=== PATIENT | male | born 1975 ===

== ENCOUNTER 2017-11-17 23:52 | Emergency (ER) | payer OTHER ==
[2017-11-18 00:06] VITALS: BMI 30.4
[2017-11-18 00:25] VITALS: RESP 18; TEMP 98.2
--- NOTE | 2017-11-18 00:45 | ED PDOC ---
Arrival/HPI - General Chief Complaint: High Blood Pressure Time Seen by Provider: 11/18/17 00:07 Historian: Patient - History of Present Illness Narrative History of Present Illness (Text): 11/18/17 00:45 A 42 year old male presents to the emergency department complaining of chest pressure and elevated blood pressure for the past month. Patient also reports his body hurts. Patient denies any other complaints at this time. Time/Duration: Other (month) Symptom Onset: Sudden Symptom Course: Unchanged Activities at Onset: Rest Context: Home Past Medical History - Provider Review Nursing Documentation Reviewed: Yes - Cardiac Hx Hypertension: No - Psychiatric Hx Substance Use: No Family/Social History - Physician Review Nursing Documentation Reviewed: Yes Family/Social History: No Known Family HX Smoking Status: n Hx Alcohol Use: No Hx Substance Use: No Allergies/Home Meds Allergies/Adverse Reactions: Allergies No Known Allergies Allergy (Verified 11/18/17 00:06) Home Medications: Home Meds Medication Instructions Recorded Confirmed Losartan [Cozaar] 50 mg PO DAILY 11/18/17 11/18/17 hydroCHLOROthiazide [Microzide] 12.5 mg PO DAILY 11/18/17 11/18/17 traZODone [trazODONE HYDROCHLORIDE] 50 mg PO DAILY 11/18/17 11/18/17 Review of Systems - Physician Review All systems were reviewed & negative as marked: Yes - Review of Systems Constitutional: Other (body pain; high blood pressure) Cardiovascular: Other (chest pressure) Physical Exam Vital Signs Reviewed: Yes Vital Signs Temp Pulse Resp BP Pulse Ox 11/18/17 03:45 72 18 141/79 97 11/18/17 02:33 146/87 11/18/17 01:45 74 18 146/78 97 11/18/17 01:14 90 151/98 H 11/18/17 00:22 98.2 F 73 18 162/86 H 99 Temperature: Afebrile Blood Pressure: Hypertensive Pulse: Regular Respiratory Rate: Normal Appearance: Positive for: Well-Appearing, Non-Toxic, Comfortable Pain Distress: None Mental Status: Positive for: Alert and Oriented X 3 - Systems Exam Head: Present: Atraumatic, Normocephalic Pupils: Present: PERRL Extroacular Muscles: Present: EOMI Conjunctiva: Present: Normal Mouth: Present: Moist Mucous Membranes Neck: Present: Normal Range of Motion Respiratory/Chest: Present: Clear to Auscultation, Good Air Exchange. No: Respiratory Distress, Accessory Muscle Use Cardiovascular: Present: Regular Rate and Rhythm, Normal S1, S2. No: Murmurs Abdomen: Present: Normal Bowel Sounds. No: Tenderness, Distention, Peritoneal Signs Back: Present: Normal Inspection Upper Extremity: Present: Normal Inspection. No: Cyanosis, Edema Lower Extremity: Present: Normal Inspection. No: Edema Neurological: Present: GCS=15, CN II-XII Intact, Speech Normal Skin: Present: Warm, Dry, Normal Color. No: Rashes Psychiatric: Present: Alert, Oriented x 3, Normal Insight, Normal Concentration Medical Decision Making ED Course and Treatment: 11/18/17 00:43 Impression: A 42 year old male with high blood pressure and chest pressure. Plan: -- EKG -- labs -- Urinalysis -- Reassess and disposition Progress Notes: 11/18/17 02:47 EKG: Ordered, reviewed, and independently interpreted the EKG. Rate : 55 BPM Rhythm : sinus tachycardia Interpretation : Nonspecific ST segment changes pt feels better with bp control will dc 11/22/17 09:28 - Lab Interpretations Lab Results: 11/18/17 00:55 11/18/17 00:55 Lab Results 11/18/17 00:55: Sodium 134, Potassium 3.3 L, Chloride 95 L, Carbon Dioxide 27, Anion Gap 15, BUN 15, Creatinine 1.0, Est GFR ( Amer) > 60, Est GFR (Non- Af Amer) > 60, Random Glucose 128 H, Calcium 8.9, Magnesium 1.8, Total Bilirubin 0.7, AST 27, ALT 36, Alkaline Phosphatase 68, Lactate Dehydrogenase 517, Total Creatine Kinase 157, Troponin I < 0.01, Total Protein 7.1, Albumin 4.4, Globulin 2.7, Albumin/Globulin Ratio 1.6 11/18/17 00:55: WBC 8.2, RBC 4.40, Hgb 14.0, Hct 39.0 L, MCV 88.6, MCH 31.8, MCHC 35.9, RDW 12.4, Plt Count 201, MPV 9.8, Gran % 70.7 H, Lymph % (Auto) 21.1 L, [place] % (Auto) 6.1 H, Eos % (Auto) 1.9, Baso % (Auto) 0.2, Gran # 5.80, Lymph # 1.7, [place] # 0.5, Eos # 0.2, Baso # 0.02 I have reviewed the lab results: Yes - EKG Interpretation Interpreted by ED Physician: Yes Type: 12 lead EKG - Medication Orders Current Medication Orders: Discontinued Medications Enalaprilat (Vasotec Iv) 1.25 mg IVP ONCE ONE Stop: 11/18/17 02:06 Last Admin: 11/18/17 02:33 Dose: Not Given Non-Admin Reason: BP Parameters Not Met [facility] Blood Pressure Document 11/18/17 02:33 SS (Rec: 11/18/17 02:33 SS [id number]) Blood Pressure Blood Pressure (100/60-150/90) 146/87 Hydralazine HCl (Apresoline) 10 mg IVP STAT STA Stop: 11/18/17 00:44 Last Admin: 11/18/17 01:14 Dose: 10 mg IVP Administration Document 11/18/17 01:14 MIRTA (Rec: 11/18/17 01:16 MIRTA [id number]) Charges for Administration # of IVP Administrations 1 [facility] Pulse and Blood Pressure Document 11/18/17 01:14 MIRTA (Rec: 11/18/17 01:16 MIRTA [id number]) Pulse Pulse Rate (60-90) 90 Blood Pressure Blood Pressure (100/60-150/90) 151/98 Potassium Chloride (K-Dur 20 Meq Er Tab) 20 meq PO ONCE ONE Stop: 11/18/17 01:21 Last Admin: 11/18/17 02:05 Dose: 20 meq JOHAN Risk Score for UA/NSTEMI - JOHAN Risk Score Age > 64: NO 3 or more CAD Risk Factors: NO Known CAD (Stenosis greater than 50%): NO Aspirin use in past 7 days: NO Severe Angina: NO EKG ST changes greater than 0.5mm: NO Positive Cardiac Marker: NO JOHAN Score: 0 % risk at 14 days of: all cause mortality, new or recurrent AK, or severe recurrent ischemia requiring urgen revascularization: 5% - Scribe Statement The provider has reviewed the documentation as recorded by the Moses Macario Provider Scribe Attestation: All medical record entries made by the Changibromario were at my direction and personally dictated by me. I have reviewed the chart and agree that the record accurately reflects my personal performance of the history, physical exam, medical decision making, and the department course for this patient. I have also personally directed, reviewed, and agree with the discharge instructions and disposition. Disposition/Present on Arrival - Present on Arrival Any Indicators Present on Arrival: No History of DVT/PE: No History of Uncontrolled Diabetes: No Urinary Catheter: No History of Decub. Ulcer: No History Surgical Site Infection Following: None - Disposition Have Diagnosis and Disposition been Completed?: Yes Diagnosis: Hypertension Disposition: HOME/ ROUTINE Disposition Time: 03:30 Condition: IMPROVED Discharge Instructions (ExitCare): Hypertension (DC) Print Language: DANISH Forms: [employer] ([place])
[2017-11-18 01:19] LABS: ALB/GLOB RATIO 1.6 (1.1-1.8); ALKALINE PHOSPHATASE 68 U/L (38-126); ALT/SGPT 36 U/L (7-56); AST/SGOT 27 U/L (17-59); BILIRUBIN,TOTAL 0.7 mg/dL (0.2-1.3); BLOOD UREA NITROGEN 15 mg/dL (7-21); CALCIUM 8.9 mg/dL (8.4-10.5); CARBON DIOXIDE 27 mmol/L (21-33); CHLORIDE 95 mmol/L (98-107); GFR AFRICAN-AMERICAN > 60; GLUCOSE,RANDOM 128 mg/dL (70-110); MAGNESIUM 1.8 mg/dL (1.7-2.2); POTASSIUM 3.3 mmol/L (3.6-5.0); SODIUM 134 mmol/L (132-148); TOTAL PROTEIN 7.1 g/dL (5.8-8.3)
[2017-11-18] MEDS ORDERED: Potassium Chloride 20 mEq ER Tab PO ONE (01:20)
[2017-11-18 01:30] LABS: BASO # 0.02 K/mm3 (0.0-2.0); BASO % 0.2 % (0.0-3.0); EOS # 0.2 (0.0-0.7); EOS % 1.9 % (1.5-5.0); GRAN # 5.8 (1.4-6.5); GRAN % 70.7 % (50.0-68.0); LYMPH # 1.7 (1.2-3.4); LYMPH % 21.1 % (22.0-35.0); MEAN CELL VOLUME 88.6 fl (80.0-105.0); MEAN CORPUSCULAR HEMOGLOBIN 31.8 pg (25.0-35.0); MEAN CORPUSCULAR HGB CONC 35.9 g/dl (31.0-37.0); MEAN PLATELET VOLUME 9.8 fl (7.0-11.0); MONO # 0.5 (0.1-0.6); MONO % 6.1 % (1.0-6.0); RED CELL DISTRIBUTION WIDTH 12.4 % (11.5-14.5); WHITE BLOOD COUNT 8.2 10^3/ul (4.5-11.0)
[2017-11-18 01:31] LABS: TROPONIN I < 0.01 ng/mL
[2017-11-18] MEDS ORDERED: EnalaprilAT 1.25 mg/ml Inj IVP ONE (02:05)
[2017-11-18 04:15] VITALS: BP 141/79; PULSE 72; O2SAT 97
--- NOTE | 2017-11-19 10:36 | CARD ---
APPROVED REPORT EKG Measurement Heart [id number] <Conclusion> Sinus bradycardia Otherwise normal ECG
== END 2017-11-18 03:32 | disposition home or self-care (01) ==
LOC: ED 23:52
DX: I10 Essential (primary) hypertension (principal)
CPT/HCPCS: 80053; 82550; 83615; 83735; 84484; 85025; 93005; 96374; 99283; J0360